=== PATIENT | female | born 1960 | race Caucasian/White ===

== ENCOUNTER 2024-05-25 14:56 | Emergency (ER) | payer OTHER ==
[~2024-05-25] VITALS: Ht 170.2 cm; Wt 51.4 kg
[2024-05-25] MEDS ORDERED: OXYCODONE HCL5 MG PO (15:17)
[2024-05-25] MEDS ORDERED: ACETAMINOPHEN500 MG PO (15:17)
[2024-05-25] MEDS ORDERED: MELOXICAM15 MG PO (15:18)
[2024-05-25] MEDS ORDERED: LO-DOSE ASPIRIN81 MG PO (15:18)
[2024-05-25] MEDS ORDERED: LIDOCAINE HCL 4% 1 EACH PATCH TD ONE (15:30)
[2024-05-25] MEDS ORDERED: KETOROLAC TROMETHAMINE 60 MG/2 ML VIAL IM ONE (15:30)
[2024-05-25] MEDS ORDERED: LIDODERM1 EACH TOP (17:21)
[2024-05-25] MEDS ORDERED: CYCLOBENZAPRINE10 MG PO (17:21)
[2024-05-25 17:33] VITALS: BP 108/78
[2024-05-25] MEDS ORDERED: LIDOCAINE PATCH REMOVAL 1 EA TD SCH (21:00)
== END 2024-05-25 17:33 | disposition home or self-care (01) ==
LOC: ED 14:56
DX: M62.838 Other muscle spasm (principal); M76.32 Iliotibial band syndrome, left leg; R73.03 Prediabetes; Z96.642 Presence of left artificial hip joint; Z79.82 Long term (current) use of aspirin; Z79.899 Other long term (current) drug therapy
CPT/HCPCS: 96372; 99283; A9270; J1885

== ENCOUNTER 2024-06-02 10:44 | Emergency (ER) | payer OTHER ==
[~2024-06-02] VITALS: Ht 152.4 cm; Wt 51.8 kg
[~2024-06-02 10:44] MED LIST: ACETAMINOPHEN500 MG PO; CYCLOBENZAPRINE10 MG PO; LIDODERM1 EACH TOP; LO-DOSE ASPIRIN81 MG PO; MELOXICAM15 MG PO; OXYCODONE HCL5 MG PO
--- OUTSIDE RECORDS SUMMARY | 2024-06-02 10:50 | XMS ---
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 No recent Security Events currently on file CRITERIA MET - [facility] - 2 Visits in 30 Days CARE PROVIDERS -, [facility] Dentist: Crime Scene Analyst Current [place] PHONE: [phone] -, [place]- Dentist: Crime Scene Analyst Current [facility] PHONE: [phone] YOVANI JOHNSON Physician Review Manager Current [place] PHONE: [phone] [facility]: [facility] WORKERS CLINIC [facility] ([facility]) [facility] PHONE: [phone] Rick has no Care Guidelines for this patient. [place] VISIT COUNT (12 MO.) 2 MAGDALENE Jimenez TOTAL 2 NOTE: Visits indicate total known visits. ED/UCC VISIT TRACKING (12 MO.) 06/02/2024 10:44 [facility] [place] TYPE: Emergency COMPLAINT: - MEDICATION REFILL 05/25/2024 14:[address] [facility] TYPE: Emergency COMPLAINT: - POST OP PROBLEM DIAGNOSES: - Iliotibial band syndrome, left leg - alf (current) use of aspirin - Other care home (current) drug therapy - Other muscle spasm - Pain in left thigh - Prediabetes - Presence of left artificial hip joint INPATIENT VISIT TRACKING (12 MO.) No inpatient visits to display in this time frame [email or web address]
[2024-06-02] MEDS ORDERED: ACETAMINOPHEN 500 MG TAB PO ONE (12:15)
[2024-06-02] MEDS ORDERED: CYCLOBENZAPRINE HCL 10 MG TAB PO ONE (12:15)
[2024-06-02] MEDS ORDERED: KETOROLAC TROMETHAMINE 30 MG/ML VIAL IM ONE (12:15)
[2024-06-02] MEDS ORDERED: LIDOCAINE HCL 4% 1 EACH PATCH TD ONE (12:15)
[2024-06-02] MEDS ORDERED: HYDROCODON-ACE1 EA10 PO (14:59)
[2024-06-02 15:26] VITALS: BP 119/85
== END 2024-06-02 15:28 | disposition home or self-care (01) ==
LOC: ED 10:44
DX: M97.02XA Periprosthetic fracture around internal prosthetic left hip joint, initial encounter (principal); R73.03 Prediabetes; Z79.82 Long term (current) use of aspirin; Z79.899 Other long term (current) drug therapy
CPT/HCPCS: 73502; 96372; 99284; A9270; J1885

== ENCOUNTER 2024-09-22 05:33 | Emergency (ER) | payer OTHER ==
[~2024-09-22] VITALS: Ht 170.2 cm; Wt 51.2 kg
[~2024-09-22 05:33] MED LIST changes: +HYDROCODON-ACE1 EA10 PO
[2024-09-22] MEDS ORDERED: CENTANY30 GM TOP (05:52)
[2024-09-22 05:59] VITALS: BP 154/102
== END 2024-09-22 06:00 | disposition home or self-care (01) ==
LOC: ED 05:33
DX: L98.9 Disorder of the skin and subcutaneous tissue, unspecified (principal); R73.03 Prediabetes
CPT/HCPCS: 99282

== ENCOUNTER 2025-05-20 05:46 | Day surgery (SDC) | payer OTHER ==
[~2025-05-20] VITALS: Ht 167.6 cm; Wt 51.0 kg
[~2025-05-20 05:46] MED LIST changes: +CENTANY30 GM TOP; +GABAPENTIN300 MG PO; +LACTATED RINGER'S 1,000 ML IV SCH; +OXYBUTYNIN CHLOR5 M1 PO; +TIOTROPIUM BRO18 MCG INH; +TIZANIDINE HCL2 MG PO; +VENTOLIN HFA18 GM INH
[2025-05-20 06:01] VITALS: BP 113/83
[2025-05-20] MEDS ORDERED: CIPROFLOXACIN500 MG PO (06:10)
[2025-05-20] MEDS ORDERED: IBLOOD GLUCOSE TEST STRIP 1 EA TEST VI PRN ×2 (07:00→08:15)
[2025-05-20] MEDS ORDERED: CEFAZOLIN SODIUM 2 GM in SODIUM CHLORIDE 0.9% 100 ML IV SCH (07:00)
[2025-05-20] MEDS ORDERED: LIDOCAINE HCL 1% 5 ML SDV INJ ONE (07:00)
[2025-05-20] MEDS ORDERED: DEXAMETHASONE SOD PHOS 4 MG/ML VIAL ONE (07:24)
[2025-05-20] MEDS ORDERED: LIDOCAINE HCL 2% 5 ML SDV ONE (07:24)
[2025-05-20] MEDS ORDERED: fentaNYL citrate 100 MCG/2 ML VIAL ONE (07:24)
[2025-05-20] MEDS ORDERED: KETOROLAC TROMETHAMINE 30 MG/ML VIAL ONE (07:24)
[2025-05-20] MEDS ORDERED: ACETAMINOPHEN 1,000 MG/100 ML VIAL ONE (07:24)
[2025-05-20] MEDS ORDERED: HYDROmorphone HCL 1 MG/ML SYR IV PRN ×2 (07:45→08:15)
[2025-05-20] MEDS ORDERED: OXYCODONE/APAP 5/325 TAB PO PRN (07:45)
[2025-05-20] MEDS ORDERED: KETOROLAC TROMETHAMINE 30 MG/ML VIAL IV PRN (07:45)
[2025-05-20] MEDS ORDERED: VASOPRESSIN 20 UNITS/ML VIAL ONE (07:59)
[2025-05-20 08:01] LABS: BARBITURATES, UR NEGATIVE (NEGATIVE); MARIJUANA (THC), UR POSITIVE (NEGATIVE)
[2025-05-20 08:02] LABS: MDMA, UR POSITIVE (NEGATIVE); METHADONE, UR NEGATIVE (NEGATIVE); METHAMPHETAMINE, UR POSITIVE (NEGATIVE)
[2025-05-20 08:03] LABS: BENZODIAZEPINES, UR NEGATIVE (NEGATIVE); BUPRENORPHINE,UR NEGATIVE (NEGATIVE); COCAINE, UR NEGATIVE (NEGATIVE); OPIATES, UR NEGATIVE (NEGATIVE); TRICYCLIC ANTIDEPRESSANT, UR NEGATIVE (NEGATIVE)
[2025-05-20] MEDS ORDERED: NALOXONE HCL 0.4 MG SYR IV PRN (08:15)
[2025-05-20] MEDS ORDERED: PROCHLORPERAZINE EDISYLATE 10 MG/2 ML VIAL IV PRN (08:15)
[2025-05-20] MEDS ORDERED: fentaNYL citrate 50 MCG/ML SDV IV PRN (08:15)
[2025-05-20] MEDS ORDERED: MIDAZOLAM HCL 2 MG/2 ML VIAL IV PRN (08:15)
--- NOTE | 2025-05-20 08:56 | NUR ---
05/20/25 0856 Trisha Morales 0850- PT ARRIVES TO PACU, SEMI HAWKINS POSITION, NON REACTIVE TO STIMULUS. BREATHING EVEN AND NON LABORED ON 6L O2 PER MASK. LR INFUSING TO LFA IV. ABD SOFT, NON DISTENDED. ALL MONITORS IN PLACE.
[2025-05-20 09:46] VITALS: BP 116/72
--- NOTE | 2025-05-20 09:55 | NUR ---
0902 PT ARRIVED TO DAY SURGERY FROM PACU VIA [email or web address]. PT AWKE AND ORIENTED, PT SIPPING ON WATER AND EATING. PT REPORTS NO PAIN AT THIS TIME AT SURGICAL SITE. PT HAS NO DRAINAGE FROM SURIGICAL SITE. DR REQUESTING TO SPEAK WITH PT WHEN PT IS FULLY AWAKE TO EXPLAIN THAT PT WILL BE NEED TO BE REFFERED OUT TO A SPECIALIST. VITALS TAKEN. IV SALINE LOCKED. PT HAS CALL LIGHT WITHIN REACH, BED IS LOW AND LOCKED.
[2025-05-20 10:33] VITALS: BP 111/72
--- NOTE | 2025-05-20 10:39 | NUR ---
1010 PT UP TO WALK ABOUT ROOM WITH RN ASSITANCE . PT ABLE TO WALK WITH EVEN STEDAY GAIT. 1013 IMAGING HERE FOR PT, PT ABLE TO TRANSFER HERSELF TO WHEELCHAIR. PT IV SALINE LOCKED. PT TAKEN TO IMAGING FOR CT VIA WHEELCHAIR. [address] PT BACK IN BED, CALL LIGHT WITHIN REACH. BED LOW AND LOCKED, SNACKS AT BEDSIDE. 1035 CONFIRMED THAT PT IS DIET ADVANCED TOELRATED. PAIN MEDICATION GIVEN PER EMAR. 1040 IN ROOM SPEAKING WITH PT.
[2025-05-20 11:34] VITALS: BP 104/70
[2025-05-20] MEDS ORDERED: SEVOFLURANE 250 ML BTL INH ONE (11:37)
--- NOTE | 2025-05-20 11:42 | NUR ---
1130 hourly rounding done with pt. pt resting with eyes closed, pt wakes to verbal stimuli. pt states that her pain is now a tolerable 4/10. pt has been able to tolerate po fluids and snacks. pt has call light within reach. bed is low and locked. pt states she might be able to urinate, but pt will continue with po water and we will try within the next hour to get up and use the restroom.
[2025-05-20 12:21] VITALS: BP 102/66
--- NOTE | 2025-05-20 12:27 | NUR ---
1220 HOURLY ROUNDING DONE WITH PT. VITALS TAKEN. PT IV ASSESSED. PT REPORTS TOLERABLE 4/10 PAIN. PT ABLE TO AMBULATE TO THE BATHROOM AND VODI 400 MLS OF DARK URINE. PT ABLE TO AMBULATE BACK TO ROOM. PT GETTING DRESSED.
--- NOTE | 2025-05-20 12:54 | NUR ---
1230 DISCHARGE GONE OVER WITH PT. NO QUESTIONS AT THIS TIME. PT HAS PRESCRIPTION, AND IS AWARE TO HAVE MEDICAL TRANSPORT TAKE THEM TO PHARMACY AND FILL PRESCRIPTION. PT IV DISCONTINUED FOR DISCHARGED. PT ABLE TO AMBULATE TO WHEELCHAIR. 1241 PT WHEELED TO THE FRONT OF THE HOSPITAL, TO MEDICAL CARE FAISAL BROOKS. FAISAL MADE AWARE THAT PT NEEDS TO GO TO PHARMACY AND FILL PRESCRIPTION. PT HAS DISCHARGE PAPERWORK, IN HAND. ALONG WITH PRESCRIPTION AND WORK NOTE.
== END 2025-05-20 12:41 | disposition home or self-care (01) ==
LOC: DS 05:46
PROVIDERS: ATTEND Urology
PROC: 0T768DZ Dilation of Right Ureter with Intraluminal Device, Via Natural or Artificial Opening Endoscopic (ICD-10-PCS; 2025-05-20)
PROC: 0TC68ZZ Extirpation of Matter from Right Ureter, Via Natural or Artificial Opening Endoscopic (ICD-10-PCS; principal; 2025-05-20 07:30)
DX: N20.1 Calculus of ureter (principal); Q62.39 Other obstructive defects of renal pelvis and ureter; F33.0 Major depressive disorder, recurrent, mild; J43.9 Emphysema, unspecified; F17.200 Nicotine dependence, unspecified, uncomplicated; Z79.899 Other long term (current) drug therapy
CPT/HCPCS: 00918; 74176; 74420; 80307; C1769; C2617; J0131; J0688; J1100; J1885; J2003; J2405; J2704; J3010; J7121; Q9967